=== PATIENT | female | born 1975 | race Hispanic/Latino ===

== ENCOUNTER 2021-07-27 04:18 | Emergency (ER) | payer OTHER, SELFPAY ==
[2021-07-27] MEDS ORDERED: Ketorolac Tromethamine 30 MG/ML VIAL ONE (04:33)
== END 2021-07-27 06:22 | disposition home or self-care (01) ==
LOC: ERS 04:18
DX: S29.012A Strain of muscle and tendon of back wall of thorax, initial encounter (principal); V89.0XXA Person injured in unspecified motor-vehicle accident, nontraffic, initial encounter
CPT/HCPCS: 71046; 96372; J1885